=== PATIENT | male | born 1965 | race Caucasian/White ===

== ENCOUNTER 2018-08-04 14:19 | Emergency (ER) | payer SELFPAY ==
[~2018-08-04] VITALS: Ht 188 cm; Wt 131.5 kg
[2018-08-04] MEDS ORDERED: ONDANSETRON PF 4 MG/2 ML VIAL. IV ONE (14:45)
[2018-08-04] MEDS ORDERED: IV NORMAL SALINE 1,000ML 1,000 ML IV ONE (14:45)
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
[2018-08-04 15:09] LABS: BACTERIA,URINE 0 /HPF (0-FEW); BILIRUBIN,URINE NEG (NEG); CLARITY,URINE CLEAR; COLOR,URINE YELLOW; GLUCOSE,URINE 500 mg/dL (NEG); NITRITE,URINE NEG (NEG); RBC,URINE 0 /HPF (0-2); SQUAMOUS EPITHELIAL CELL,UR OCC /LPF; UROBILINOGEN,URINE 1 mg/dL (0.2 mg/dL); WBC,URINE 0 /HPF (0-4)
[2018-08-04] MEDS ORDERED: ACETAMINOPHEN 500 MG TABLET PO ONE (15:15)
[2018-08-04 15:17] LABS: BASO % 1 % (0-3); EOS # 0.2 x10^3/uL (0.0-0.7); EOS % 5 % (0-3); HEMATOCRIT 42.4 % (39.0-53.0); HEMOGLOBIN 14.3 g/dL (13.0-17.5); LYMPH # 1.2 x10^3/uL (1.0-4.8); LYMPH % 25 % (24-48); MEAN CORPUSCULAR HEMOGLOBIN 32 pg (25-35); MEAN CORPUSCULAR HGB CONC 34 g/dL (31-37); MEAN CORPUSCULAR VOLUME 94 fL (79-100); MONO # 0.5 x10^3/uL (0.0-1.1); MONO % 10 % (0-9); NEUT # 2.8 x10^3uL (1.8-7.7); NEUT % 59 % (31-73); PLATELET COUNT 150 x10^3/uL (140-400); RED BLOOD COUNT 4.52 x10^6/uL (4.30-5.70); RED CELL DISTRIBUTION WIDTH 14.1 % (11.5-14.5); WHITE BLOOD COUNT 4.7 x10^3/uL (4.0-11.0)
[2018-08-04 15:24] LABS: ALBUMIN 3.5 g/dL (3.4-5.0); ALBUMIN/GLOBULIN RATIO 1.2 (1.0-1.7); CALCIUM 8.3 mg/dL (8.5-10.1); GFR 78.2; TOTAL BILIRUBIN 0.6 mg/dL (0.2-1.0); TOTAL PROTEIN 6.4 g/dL (6.4-8.2)
[2018-08-04 15:38] LABS: AMPHETAMINE/METHAMPHETAMINE NEG (NEG); BARBITURATES NEG (NEG); BENZODIAZEPINES NEG (NEG); CANNABINOIDS POS (NEG); COCAINE NEG (NEG); METHADONE NEG (NEG); OPIATES NEG (NEG); PHENCYCLIDINE NEG (NEG)
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
--- NOTE | 2018-08-04 16:30 | RAD ---
CHEST PA LATERAL Clinical indications: COUGH which is productive COMPARISON: None available. Findings: Bilateral bronchitis is seen. No lung consolidation or pleural effusion or lung mass or pneumothorax is seen. The heart size, pulmonary vasculature, mediastinum and both isiah are unremarkable. The osseous structures appear intact. Post surgical changes of the lower neck are seen. Impression: Bilateral bronchitis without consolidative pneumonia. Electronically signed by: Austin Silver MD (08/04/2018 4:25 PM) [facility]
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
[2018-08-04 16:45] VITALS: BP 100/67
[2018-08-04] MEDS ORDERED: KETOROLAC 30 MG/ML VIAL. IV ONE (16:45)
== END 2018-08-04 16:50 | disposition home or self-care (01) ==
LOC: ER 14:19
DX: J40 Bronchitis, not specified as acute or chronic (principal); M54.2 Cervicalgia; M54.5 Low back pain; M54.6 Pain in thoracic spine; E11.65 Type 2 diabetes mellitus with hyperglycemia; Z88.8 Allergy status to other drugs, medicaments and biological substances; V53.9XXA Unspecified occupant of pick-up truck or van injured in collision with car, pick-up truck or van in traffic accident, initial encounter; Y93.89 Activity, other specified; Y92.488 Other paved roadways as the place of occurrence of the external cause; Y99.8 Other external cause status
CPT/HCPCS: 36415; 71046; 72040; 72072; 72100; 80053; 80307; 81001; 85025; 96361; 96374; 96375; 99284; J1885; J2405; J7030

== ENCOUNTER 2020-07-28 06:58 | Emergency (ER) | payer OTHER ==
[~2020-07-28] VITALS: Ht 188 cm; Wt 111.0 kg
[2020-07-28 07:13] VITALS: BP 108/65
--- NOTE | 2020-07-28 07:26 | PHYS DOC ---
Past History Past Medical History: Cancer, Diabetes Past Surgical History: Other Additional Past Surgical Histo: THYROID REMOVED Alcohol Use: Occasionally Drug Use: None General Adult EDM: Chief Complaint: BACK PAIN OR INJURY HPI: HPI: Patient is a [age] year old [sex] who presents with [] Review of Systems: Review of Systems: Constitutional: Denies fever or chills Eyes: Denies change in visual acuity HENT: Denies nasal congestion or sore throat Respiratory: Denies cough or shortness of breath Cardiovascular: Denies chest pain or edema GI: Denies abdominal pain, nausea, vomiting, bloody stools or diarrhea : Denies dysuria Musculoskeletal: Denies back pain or joint pain Integument: Denies rash Neurologic: Denies headache, focal weakness or sensory changes Endocrine: Denies polyuria or polydipsia Lymphatic: Denies swollen glands Psychiatric: Denies depression or anxiety Allergies: Allergies: Allergies Coded Allergies Type Severity Reaction Last Updated Verified lithium Allergy Unknown 08/04/18 Yes metformin Allergy Unknown 08/04/18 Yes zolpidem Allergy Unknown 07/28/20 Yes Physical Exam: PE: Constitutional: Well developed, well nourished, no acute distress, non-toxic appearance. [] HENT: Normocephalic, atraumatic, bilateral external ears normal, oropharynx moist, no oral exudates, nose normal. [] Eyes: PERRLA, EOMI, conjunctiva normal, no discharge. [] Neck: Normal range of motion, no tenderness, supple, no stridor. [] Cardiovascular:Heart rate regular rhythm, no murmur [] Lungs & Thorax: Bilateral breath sounds clear to auscultation [] Abdomen: Bowel sounds normal, soft, no tenderness, no masses, no pulsatile masses. [] Skin: Warm, dry, no erythema, no rash. [] Back: No tenderness, no CVA tenderness. [] Extremities: No tenderness, no cyanosis, no clubbing, ROM intact, no edema. [] Neurologic: Alert and oriented X 3, normal motor function, normal sensory function, no focal deficits noted. [] Psychologic: Affect normal, judgement normal, mood normal. [] Current Patient Data: Vital Signs: Vital Signs Date Time Temp Pulse Resp B/P (MAP) Pulse Ox O2 Delivery O2 Flow Rate FiO2 07/28/20 07:13 98.0 94 18 108/65 (79) 96 Room Air EKG: EKG: [] Radiology/Procedures: Radiology/Procedures: [] Heart Score: Risk Factors: Risk Factors: DM, Current or recent (<one month) smoker, HTN, HLP, family history of CAD, obesity. Risk Scores: Score 0 - 3: 2.5% MACE over next 6 weeks - Discharge Home Score 4 - 6: 20.3% MACE over next 6 weeks - Admit for Clinical Observation Score 7 - 10: 72.7% MACE over next 6 weeks - Early Invasive Strategies Course & Med Decision Making: Course & Med Decision Making Pertinent Labs and Imaging studies reviewed. (See chart for details) [] Dragon Disclaimer: Dragon Disclaimer: This electronic medical record was generated, in whole or in part, using a voice recognition dictation system. Departure Departure: Impression: Primary Impression: Encounter for medication administration Additional Impression: Chronic back pain Qualified Codes: M54.41 - Lumbago with sciatica, right side; M54.42 - Lumbago with sciatica, left side; G89.29 - Other chronic pain Disposition: 01 DC HOME SELF CARE/HOMELESS Condition: STABLE Referrals: PCP,UNKNOWN (PCP) Patient Instructions: Chronic Back Pain, Medication Refill, Emergency Department Additional Instructions: Please follow with [facility] doctors or the [facility] regarding [facility] and to get refills of your medications as needed. WALT GIBBS DO Jul 28, 2020 07:26
[2020-07-28] MEDS ORDERED: LEVOTHYROXINE 175 MCG TABLET PO ONE (07:30)
== END 2020-07-28 07:43 | disposition home or self-care (01) ==
LOC: ER 06:58
DX: M54.41 Lumbago with sciatica, right side (principal); M54.42 Lumbago with sciatica, left side; G89.29 Other chronic pain; E11.9 Type 2 diabetes mellitus without complications
CPT/HCPCS: 99283

== ENCOUNTER 2020-08-07 21:53 | Emergency (ER) | payer OTHER ==
[~2020-08-07] VITALS: Ht 188 cm; Wt 120.0 kg
--- NOTE | 2020-08-07 21:59 | PHYS DOC ---
Past History Past Medical History: Anxiety, Arthritis, Bipolar, Cancer, Depression, Diabetes, Hypothyroid Past Medical History MRSA, Behavioral, Anger management disorder, Past Surgical History: Other Additional Past Surgical Histo: THYROID REMOVED Smoking: Cigarettes Alcohol Use: Occasionally Drug Use: Marijuana General Adult HPI: HPI: ".. I need my medications re filled... to night... [facility] ..[facility] to the [facility] "" [address] .. but they get mad when I come in the middle of night to get med re fills. .. so I came here tonight. So I need my meds refilled right now... I need my box of insulin syringes, I need my eye drops , I need my K-Y jelly, I need my cough medicines ,I need my Flexeril, I need my naproxen, I need Band-Aids,... and need alcohol patches, I need lidocaine patches, I need all my fucking meds refilled tonight.." " I need something to eat.. I feel .. Like my sugars are low..." Patient is a 55 year old male who presents with above hx and complaints of med refill. Patient reportedly in the [employer] at [place] prior to discharge. Has past medical history of diabetes, bronchitis, hypothyroidism, chronic back pain, MRSA, bipolar, depression, behavior disorders, anger management issues,. Patient has additional history of cannabis dependent, elevated lipids, tinnitus, arthritis, alcohol dependence, vitamin D deficiency, basal cell carcinoma, and hypertension. Patient has been homeless and was recently expelled from local detention. Before taking resident at [facility] . at [facility]. Patient's meds were refilled on the 08/01. Requested Medical records from [facility] [phone]. Release records per Pt. Pt. is fiver hours late from the curfew at [facility]. See copy of last [facility] hx. and exam. Review of Systems: Review of Systems: Constitutional: Denies fever or chills Eyes: Denies change in visual acuity HENT: Denies nasal congestion or sore throat Respiratory: Denies cough or shortness of breath Cardiovascular: complaint of ankle edema GI: Denies abdominal pain, nausea, vomiting, bloody stools or diarrhea : Denies dysuria Musculoskeletal: Denies back pain or joint pain Integument: Healing gluteal abscess and right heel abscess. Neurologic: Denies headache, focal weakness or sensory changes Endocrine: Denies polyuria or polydipsia Lymphatic: Denies swollen glands Psychiatric: Hx. depression and anxiety Family History: Family History: History in foster care as a child Current Medications: Current Meds: See nursing for home meds Allergies: Allergies: Allergies Coded Allergies Type Severity Reaction Last Updated Verified lithium Allergy Unknown 08/04/18 Yes metformin Allergy Unknown 08/04/18 Yes zolpidem Allergy Unknown 07/28/20 Yes Physical Exam: PE: Constitutional: , no acute distress, non-toxic appearance. [] HENT: Normocephalic, atraumatic, bilateral external ears normal, oropharynx moist, no oral exudates, nose normal. [] Eyes: PERRLA, EOMI, conjunctiva normal, no discharge. [] Neck: Normal range of motion, no tenderness, supple, no stridor. Surgical scar Cardiovascular:Heart rate regular rhythm, no murmur []. PMI to Lt. Normal sinus on monitor. No acute morphology. Lungs & Thorax: Bilateral breath sounds equal apex with scattered wheezes on auscultation [] Abdomen: Bowel sounds normal, soft, no tenderness, no masses, no pulsatile masses. Obese Skin: Warm, dry, no erythema, no rash. Healing abscess right gluteal and right heel Back: No tenderness, no CVA tenderness. [] Extremities: No tenderness, no cyanosis, no clubbing, ROM intact, 1-2+ ankle edema. Arthritic changes. No cording Neurologic: Alert and oriented X 3, normal motor function, normal sensory function, no focal deficits noted. [] Psychologic: Affect anxious, agitated, demanding, judgement normal, mood normal. [] EKG: EKG: [] Radiology/Procedures: Radiology/Procedures: [] Heart Score: HEART Score for Chest Pain: HEART Score for Chest Pain Response (Comments) Value Age >45 - < 65 1 Risk Factors 1 or 2 Risk Factors 1 Total 2 Risk Factors: Risk Factors: DM, Current or recent (<one month) smoker, HTN, HLP, family history of CAD, obesity. Risk Scores: Score 0 - 3: 2.5% MACE over next 6 weeks - Discharge Home Score 4 - 6: 20.3% MACE over next 6 weeks - Admit for Clinical Observation Score 7 - 10: 72.7% MACE over next 6 weeks - Early Invasive Strategies Course & Med Decision Making: Course & Med Decision Making Pertinent Labs and Imaging studies reviewed. (See chart for details) Discussed presentation with [facility]. Advised he missed curfew. Advise all his meds were refilled 08/01. Recommend pt. return to [facility]. Suspect he was attempting to be non-compliant with prior medical recommendations and treatment as well as housing rules. . Patient discharged to return to the [facility] [phone]. Impression: 1. Request for Script Meds - filled at [facility] [] Tyler Disclaimer: Tyler Disclaimer: This electronic medical record was generated, in whole or in part, using a voice recognition dictation system. Departure Departure: Referrals: PCP,UNKNOWN (PCP) LAKEISHA KLEIN MD Aug 07, 2020 21:59
[2020-08-08] VITALS: BP 118/68
== END 2020-08-08 | disposition home or self-care (01) ==
LOC: ER 21:53
DX: R05 Cough (principal); R45.1 Restlessness and agitation; F41.9 Anxiety disorder, unspecified; M19.90 Unspecified osteoarthritis, unspecified site; F32.9 Major depressive disorder, single episode, unspecified; E11.9 Type 2 diabetes mellitus without complications; E03.9 Hypothyroidism, unspecified; F17.210 Nicotine dependence, cigarettes, uncomplicated; F12.90 Cannabis use, unspecified, uncomplicated; Z86.14 Personal history of Methicillin resistant Staphylococcus aureus infection; Z85.9 Personal history of malignant neoplasm, unspecified; Z98.890 Other specified postprocedural states; Z88.8 Allergy status to other drugs, medicaments and biological substances
CPT/HCPCS: 82947; 99283